=== PATIENT | female | born 1985 | race Caucasian/White ===

== ENCOUNTER 2020-11-27 09:44 | Inpatient (IN) ==
[2020-11-27] MEDS ORDERED: ANCEF VIAL 1 GRAM IVP ONE (10:25)
[2020-11-27] MEDS ORDERED: ANCEF 1 GRAM IV PREMIX* 2 G/100 ML BAG IV ONE (10:25)
[2020-11-27 10:35] LABS: BILIRUBIN,URINE NEGATIVE (NEGATIVE); BLOOD/HEMOGLOBIN,URINE NEGATIVE (NEGATIVE); GLUCOSE, URINE NEGATIVE (NEGATIVE); KETONES,URINE NEGATIVE (NEGATIVE); LEUKOCYTE ESTERASE ,URINE 2+ (NEGATIVE); NITRITES,URINE NEGATIVE (NEGATIVE); PROTEIN,URINE NEGATIVE (NEGATIVE); UROBILINOGEN,URINE NORMAL (NORMAL)
[2020-11-27 10:49] LABS: APPEARANCE,URINE SLIGHTLY HAZY (CLEAR); COLOR,URINE YELLOW (YELLOW)
[2020-11-27 10:51] LABS: BACTERIA,URINE TRACE /HPF (NEGATIVE); MUCUS,URINE FEW /HPF (NEGATIVE); RBC,URINE NONE SEEN /HPF (0-3); SQUAMOUS EPITHELIAL CELL,UR MANY /HPF (NEGATIVE)
[2020-11-27] MEDS ORDERED: REGLAN INJ 10 MG VIAL ONE (11:00)
[2020-11-27] MEDS ORDERED: PEPCID 20 MG IV PREMIX* 20 MG/50 ML BAG IV ONE (11:00)
[2020-11-27] MEDS ORDERED: ZOFRAN INJ 4 MG VIAL ONE (11:00)
[2020-11-27] MEDS ORDERED: LR 1000 ML IV 1,000 ML IV SCH (11:00)
[2020-11-27 11:08] LABS: BASOPHILS # (AUTO) 0.2 X10^3/uL (0.0-0.1); BASOPHILS % (AUTO) 1.5 % (0.2-1.0); EOSINOPHILS % (AUTO) 0.3 % (0.9-2.9); HEMATOCRIT 42.1 % (36.0-47.0); HEMOGLOBIN 13.8 g/dL (12.0-16.0); LYMPHOCYTES # (AUTO) 2.4 X10^3/uL (1.3-2.9); LYMPHOCYTES % (AUTO) 21.7 % (21.0-51.0); MEAN CORPUSCULAR HEMOGLOBIN 29.4 pg (27.0-34.0); MEAN CORPUSCULAR HGB CONC 32.8 g/dL (33.0-35.0); MEAN CORPUSCULAR VOLUME 89.7 fL (80.0-100.0); MEAN PLATELET VOLUME 10.5 fL (7.4-11.0); MONOCYTES # (AUTO) 0.5 x10^3/uL (0.3-0.8); MONOCYTES % (AUTO) 4.6 % (0.0-13.0); NEUTROPHILS % (AUTO) 71.9 % (42.0-75.0); PLATELET COUNT 218 X10^3/uL (150.0-450.0); RED BLOOD COUNT 4.69 X10^6/uL (3.5-5.4); RED CELL DISTRIBUTION WIDTH 14.5 % (11.6-16.5); WHITE BLOOD COUNT 11.2 X10^3/uL (3.6-10.0)
[2020-11-27 11:09] LABS: BLOOD UREA NITROGEN 10 mg/dL (7-18); CALCIUM 8.8 mg/dL (8.5-10.1); CARBON DIOXIDE 20.7 mmol/L (21-32); CHLORIDE 105 mmol/L (98-107); CREATININE 0.78 mg/dL (0.55-1.02); SODIUM 139 mmol/L (136-145); eGFR NON BLACK RACES > 60 (>60)
[2020-11-27] MEDS ORDERED: DILAUDID INJ ONE (11:18)
[2020-11-27] MEDS ORDERED: FENTANYL INJ 100 mcg ONE (11:19)
[2020-11-27] MEDS ORDERED: NS 100 ML IV 100 ML IV ONE (11:19)
[2020-11-27] MEDS ORDERED: EPHEDRINE SULFATE INJ ONE (11:57)
[2020-11-27] MEDS ORDERED: MARCAINE SPINAL ONE (11:57)
[2020-11-27] MEDS ORDERED: NEO-SYNEPHRINE INJ ONE (11:57)
[2020-11-27] MEDS ORDERED: DECADRON INJ ONE (11:57)
[2020-11-27] MEDS ORDERED: D5 1/2 NS 1L W PITOCIN 20 UNITS/L 20 UNITS/1,000 ML BAG IV ONE (12:27)
[2020-11-27] MEDS ORDERED: PHENERGAN INJ 25 MG IM PRN ×2 (13:19→13:50)
[2020-11-27] MEDS ORDERED: REGLAN INJ 10 MG VIAL IVP PRN (13:19)
[2020-11-27] MEDS ORDERED: DILAUDID INJ IVP PRN (13:19)
[2020-11-27] MEDS ORDERED: BENADRYL INJ 50 MG VIAL IVP PRN (13:19)
[2020-11-27] MEDS ORDERED: ZOFRAN INJ 4 MG VIAL IVP PRN ×2 (13:19→13:50)
[2020-11-27] MEDS ORDERED: MOTRIN TAB 800 MG PO PRN (13:50)
[2020-11-27] MEDS ORDERED: MYLICON TAB 80 MG CHEW PO PRN (13:50)
[2020-11-27] MEDS ORDERED: PERCOCET TAB 5/325 MG PO PRN (13:50)
[2020-11-27] MEDS: SYNTHROID 125 mcg TAB PO SCH ×2 (14:29→16:30)
[2020-11-28 05:56] LABS: HEMATOCRIT 33.4 % (36.0-47.0)
[2020-11-28 06:05] LABS: HEMOGLOBIN 11.1 g/dL (12.0-16.0)
[2020-11-28] MEDS ORDERED: MOTRIN TAB 800 MG PO ONE (06:14)
[2020-11-28] MEDS ORDERED: PRENATAL PLUS PO SCH (09:00)
[2020-11-28 12:41] VITALS: BP 102/65
[2020-11-28] MEDS ORDERED: TORADOL 30 MG VIAL IVP SCH (14:00)
== END 2020-11-28 15:30 | disposition home or self-care (01) | DRG 788 ==
LOC: ER 09:44 → LD 10:13 → OBS 13:55
PROVIDERS: ADMIT Obstetrics & Gynecology; ATTEND Obstetrics & Gynecology
DX: Z11.59 Encounter for screening for other viral diseases; Z3A.38 38 weeks gestation of pregnancy; O32.9XX1 Maternal care for malpresentation of fetus, unspecified, fetus 1; Z37.0 Single live birth